=== PATIENT | female | born 1960 | race African-American/Black ===

== ENCOUNTER 2017-10-29 16:59 | Inpatient (IN) | payer BC, SELFPAY ==
--- NOTE | 2017-10-29 17:43 | RAD ---
PORTABLE CHEST: 10/29/17 HISTORY: Syncope. COMPARISON: 01/05/17. The lungs appear clear. No infiltrate. Heart and mediastinum unremarkable. IMPRESSION: Unremarkable chest. POS: [facility]
[2017-10-29 18:03] LABS: Hemoglobin 12.3 g/dL (12.0-16.0); Mean Corpuscular HGB CONC 31.9 g/dL (32.0-36.0); Mean Corpuscular Hemoglobin 23.9 pg (27.0-31.0); Mean Corpuscular Volume 74.8 fL (78.0-98.0); Mean Platelet Volume 8.5 fL (7.4-10.4); Platelet Count 217 thou/uL (130-400); RBC Distribution Width 13.1 % (11.5-14.5); Red Blood Cell (RBC) Count 5.15 mill/uL (4.20-5.40); White Blood Cell (WBC) Count 5.8 thou/uL (4.8-10.8)
--- NOTE | 2017-10-29 18:10 | CT ---
CT HEAD WITHOUT CONTRAST: 10/29/17 Multiple axial tomograms obtained through the head without IV enhancement. INDICATIONS: Syncope. Ventricles have normal size and position. No evidence of intracranial mass, hemorrhage, or infarct. IMPRESSION: No acute abnormality. POS: [facility]
[2017-10-29 18:18] LABS: ALT (SGPT) 17 U/L (8-55); AST (SGOT) 20 U/L (5-34); Albumin 4.3 g/dL (3.5-5.0); Alkaline Phosphatase 59 U/L (40-150); Anion Gap 14 mmol/L (10-20); BUN (Urea Nitrogen) 12 mg/dL (9.8-20.1); Bilirubin, Total 0.3 mg/dL (0.2-1.2); CK (CPK) 510 U/L (29-168); Calc. Creatinine Clearance 0 mL/min (70-130); Calcium 9.5 mg/dL (7.8-10.44); Carbon Dioxide 23 mmol/L (22-29); Chloride 106 mmol/L (98-107); Estimated GFR-MDRD 59; Globulin 3.4 g/dL (2.4-3.5); Glucose 112 mg/dL (70-105); Potassium 3.8 mmol/L (3.5-5.1); Protein, Total 7.7 g/dL (6.0-8.3); Sodium 139 mmol/L (136-145)
[2017-10-29 18:22] LABS: CKMB 6.2 ng/mL (0-6.6); Troponin I 0.022 ng/mL (< 0.028)
[2017-10-29] MEDS ORDERED: Acetaminophen 500 MG TAB ONE (18:22)
[2017-10-29 18:23] LABS: #Eosinphils 0.1 thou/uL (0.0-0.7); #Lymphocytes 1.3 thou/uL (1.20-3.40); #Monocytes 0.5 thou/uL (0.11-0.59); %Basophils 0.4 % (0.0-1.0); %Eosinophils 0.9 % (0.0-10.0); %Lymphocytes 21.9 % (21.0-51.0); %Monocytes 7.8 % (0.0-10.0); MDiff Complete? YES; Microcytosis SLIGHT = 6-15 cells (100X) (0-5/hpf)
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
[2017-10-29 19:37] LABS: Bilirubin Negative (Negative); Blood, Urine Trace (Negative); Clarity TURBID (Clear); Glucose, Urine (Dipstick) Negative (Negative); Leukocyte Small (Negative); Nitrite Positive (Negative); Protein, Urine (Dipstick) 100 mg/dL (Neg-Trace); Specific Gravity, Urine 1.009 (1.002-1.036); Urobilinogen 0.2 mg/dL (0.2-1.0); pH, Urine 8.5 (5.0-9.0)
[2017-10-29 19:40] LABS: Bacteria/HPF 3+ HPF (None Seen); Pathc Cast-AUWi Flag 1.59 (0-2.49)
[2017-10-29 19:52] LABS: Hyaline Casts/LPF NONE SEEN LPF (0-3 Hyaline); RBC/HPF 0-3 HPF (0-3); Renal Epithelial None Seen HPF (0-3); Transitional Epithelial NONE SEEN HPF (0-3)
[2017-10-29 21:10] VITALS: BMI 41.5
[2017-10-29 21:38] LABS: Troponin I 0.017 ng/mL (< 0.028)
[2017-10-29] MEDS: Acetaminophen 325 MG TAB PO PRN (22:06)
[2017-10-29] MEDS: Sodium Chloride 0.9% 1,000 ML IV SCH (22:06)
[2017-10-29] MEDS ORDERED: Propranolol HCl 20 MG TAB PO PRN (22:43)
--- NOTE | 2017-10-29 22:46 | ULT ---
CAROTID DOPPLER: 10/29/17 Ultrasound doppler study performed in the extracranial carotid arteries. INDICATION: Syncope. Ultrasound images show no significant echogenic plaque. Velocity recordings are within normal range. No evidence of significant stenosis. Vertebral bodies sh ow antegrade flow. IMPRESSION: 1. No significant echogenic plaque identified by ultrasound. 2. No evidence of significant stenosis identified in either internal carotid artery. POS: [facility]
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
[2017-10-29] MEDS ORDERED: Apixaban 5 MG TAB PO SCH (23:30)
[2017-10-30 00:14] LABS: Troponin I Less than 0.010 ng/mL (< 0.028)
[2017-10-30 05:37] LABS: Anion Gap 11 mmol/L (10-20); BUN (Urea Nitrogen) 10 mg/dL (9.8-20.1); Calc. Creatinine Clearance 131 mL/min (70-130); Calcium 8.8 mg/dL (7.8-10.44); Carbon Dioxide 26 mmol/L (22-29); Chloride 108 mmol/L (98-107); Estimated GFR-MDRD 83; Glucose 84 mg/dL (70-105); Potassium 3.7 mmol/L (3.5-5.1); Sodium 141 mmol/L (136-145)
--- NOTE | 2017-10-30 05:50 | PDOC.FM ---
- Subjective Subjective: Pt has had no events since admission. Reports occasional chest tightness during afib episodes at home and once in the ER. She has not had a stress test for at least 2 years. No cp or tightness this morning. ROS: no fevers no chills, no sob no cough, no palpitations no cp, no nausea no vomiting, no dysuria no hematuria - Objective MAR Reviewed: Yes Vital Signs & Weight: Vital Signs (12 hours) Temp Pulse Resp BP BP BP BP 10/30/17 04:30 97.7 F 59 L 16 122/66 10/29/17 23:50 55 L 14 113/63 115/69 113/59 L 10/29/17 21:14 97.8 F 60 16 130/61 10/29/17 20:52 97.8 F 60 16 Pulse Ox 10/30/17 04:30 98 10/29/17 23:50 98 10/29/17 21:14 100 10/29/17 20:52 Weight Weight 113.217 kg I&O: 10/28/17 10/29/17 10/30/17 06:59 06:59 06:59 Intake Total 1121 Balance 1121 Result Diagrams: 10/29/17 17:42 10/30/17 04:52 <Ney Torrez - Last Filed: 10/30/17 12:51> - Objective Vital Signs & Weight: Vital Signs (12 hours) Temp Pulse Resp BP Pulse Ox 10/30/17 12:25 98.0 F 58 L 16 118/57 L 99 10/30/17 07:50 98.0 F 58 L 16 123/59 L 100 Weight Weight 113.217 kg I&O: 10/29/17 10/30/17 10/31/17 06:59 06:59 06:59 Intake Total 1121 579 Balance 1121 579 Result Diagrams: 10/29/17 17:42 10/30/17 04:52 <Elsy Valle - Last Filed: 10/30/17 17:16> Phys Exam - Physical Examination Constitutional: NAD HEENT: moist MMs, sclera anicteric Respiratory: no wheezing, clear to auscultation bilateral Cardiovascular: RRR, no significant murmur Gastrointestinal: soft, non-tender Psychiatric: normal affect, A&O x 3 Skin: no rash, cap refill <2 seconds <Ney Torrez - Last Filed: 10/30/17 12:51> Dx/Plan (1) Syncope and collapse Code(s): R55 - SYNCOPE AND COLLAPSE Status: Acute (2) Atrial fibrillation Code(s): I48.91 - UNSPECIFIED ATRIAL FIBRILLATION Status: Acute (3) Chest tightness Code(s): R07.89 - OTHER CHEST PAIN Status: Acute (4) Acute kidney injury Code(s): N17.9 - ACUTE KIDNEY FAILURE, UNSPECIFIED Status: Acute (5) Bacteriuria with pyuria Code(s): N39.0 - URINARY TRACT INFECTION, SITE NOT SPECIFIED Status: Acute - Plan Plan: 57 yr old female with paroxysmal a fib and episode of syncope Syncope A-Likely 2/2 arrhythmia (A fib) verses vasovagal syncope given emotional stressor immediately proceeding event, possible dehydration. Although pyuria present, no evidence for infection at this time. Neurologically intact so unlikely to be cause. orthostatics negative, carotid US negative. P- ECHO - Stress test (resting portion today, finish tomorrow) Paroxysmal a fib -monitored on Profound -cont eleGroopt -cont home meds after stress test Pyuria A- Likely a chronic colonizer. no WBC elevation to suggest infection. P- will await urine culture hold abx for now since she has urostomy Chest Tightness A- Pt not currently experiencing symptoms. troponins negative x3, normal EKG and CXR, no stress test since 2016 at least. Pt describes tightness accompanying events of afib P- resume syncope workup (echo, stress test) JENNIFER A- resolved P- continue to monitor DVT PPX- eliquis heart healthy diet, NPO after midnight for stress portion of stress test tomorrow <Ney Torrez - Last Filed: 10/30/17 12:51> Attending Addendum - Attending Addendum Date/Time: 10/30/17 1829 I personally evaluated the patient and discussed the management with Dr. Torrez. I agree with the History, Examination, Assessment and Plan documented above with any addition or exceptions noted below. Pt with syncopal event and what felt like the start of her a.fib. Carotid doppler was ordered. CE negative. Will get stress test. <Elsy Valle - Last Filed: 10/30/17 17:16>
--- NOTE | 2017-10-30 06:18 | PDOC.EVN ---
Event Note - Event Note Event Note: Patient decided after moving to the floor that she would like to be full code. Her family is in agreement with this as well.
[2017-10-30] MEDS: Sodium Chloride 0.9% 1,000 ML IV SCH ×3 (07:58→23:39)
[2017-10-30] MEDS: Apixaban 5 MG TAB PO SCH ×2 (09:31→19:57)
[2017-10-30] MEDS: Acetaminophen 325 MG TAB PO PRN (12:58)
[2017-10-31 05:12] LABS: Hemoglobin 10.6 g/dL (12.0-16.0); Platelet Count 184 thou/uL (130-400)
--- NOTE | 2017-10-31 05:27 | PDOC.FM ---
- Subjective Subjective: Pt feeling well this morning. no cp or sob overnight or in morning. no complaints. ROS: no fever no chills, no sob no cough, no cp no palpitations, no nausea no vomiting, no rashes or swelling, no tenderness at urostomy - Objective MAR Reviewed: Yes Vital Signs & Weight: Vital Signs (12 hours) Temp Pulse Resp BP Pulse Ox 10/30/17 19:55 98.2 F 59 L 20 10/30/17 19:17 98.2 F 59 L 20 110/58 L 99 Weight Weight 113.217 kg I&O: 10/29/17 10/30/17 10/31/17 06:59 06:59 06:59 Intake Total 1121 2074 Balance 1121 2074 Result Diagrams: 10/31/17 04:20 10/31/17 04:19 <Ney Torrez - Last Filed: 10/31/17 08:15> - Objective Vital Signs & Weight: Vital Signs (12 hours) Temp Pulse Resp BP BP BP Pulse Ox 10/31/17 15:40 98.2 F 70 14 126/58 L 99 10/31/17 11:47 98.6 F 63 14 99 10/31/17 11:30 98.6 F 63 14 144/71 H 99 10/31/17 07:50 98.0 F 54 L 16 121/61 99 10/31/17 04:40 98 F 55 L 14 108/53 L 99 Weight Weight 113.217 kg I&O: 10/30/17 10/31/17 11/01/17 06:59 06:59 06:59 Intake Total 1121 6746 756 Balance 1121 2336 756 Result Diagrams: 10/31/17 04:20 10/31/17 04:19 <Elsy Valle - Last Filed: 10/31/17 16:18> Phys Exam - Physical Examination Constitutional: NAD HEENT: moist MMs, sclera anicteric Respiratory: no wheezing, clear to auscultation bilateral Cardiovascular: RRR, no significant murmur Gastrointestinal: soft, non-tender Psychiatric: normal affect Skin: no rash, normal turgor <Ney Torrez - Last Filed: 10/31/17 08:15> Dx/Plan (1) Syncope and collapse Code(s): R55 - SYNCOPE AND COLLAPSE Status: Acute (2) Atrial fibrillation Code(s): I48.91 - UNSPECIFIED ATRIAL FIBRILLATION Status: Acute (3) Chest tightness Code(s): R07.89 - OTHER CHEST PAIN Status: Acute (4) Acute kidney injury Code(s): N17.9 - ACUTE KIDNEY FAILURE, UNSPECIFIED Status: Acute (5) Bacteriuria with pyuria Code(s): N39.0 - URINARY TRACT INFECTION, SITE NOT SPECIFIED Status: Acute (6) Anemia Code(s): D64.9 - ANEMIA, UNSPECIFIED Status: Acute - Plan Plan: 57 yr old female with paroxysmal a fib and episode of syncope Syncope A-Likely 2/2 arrhythmia (A fib) verses vasovagal syncope given emotional stressor immediately proceeding event, possible dehydration. Although pyuria present, no evidence for infection at this time. Neurologically intact so unlikely to be cause. orthostatics negative, carotid US negative. Echo shows grade 2/3 HFpEF P- Stress test (resting portion today, finish tomorrow) HFpEF A- likely due to afib and obesity. pt not hypertensive but is currently on metoprolol at home for afib. P- stress test today - Continue home meds for afib after stess test today - will advise pt on weight loss Paroxysmal a fib -monitored on tele -cont ele[employer] Runner -cont home meds after stress test (metoprolol, flecainide) Pyuria A- Cultures show presumed proteus. Pt not showing signs of infection. P- will await culture species hold abx for now since she has urostomy Chest Tightness A- Pt not currently experiencing symptoms. troponins negative x3, normal EKG and CXR, no stress test since 2016 at least. Pt describes tightness accompanying events of afib. Echo shows grade 2/3 HFpEF P- stress test today Anemia A- H/H 10.6/32.9, pt denies fatigue/sob/mora P- will consider getting anemia workup for outpt management JENNIFER - Resolved DVT PPX- eliquis NPO until after stress test today <Ney Torrez - Last Filed: 10/31/17 08:15> Attending Addendum - Attending Addendum Date/Time: 10/31/17 2616 I personally evaluated the patient and discussed the management with Dr. Torrez. I agree with the History, Examination, Assessment and Plan documented above with any addition or exceptions noted below. The patient had second part of stress test today. Results pending. Echo shows newly diagnosed Grade 2/3 diastolic heart failure. Will consult cardiology. Pt has paroxysmal a.fib and her metoprolol is being held currently due to bradycardia and low blood pressures. <Elsy Valle - Last Filed: 10/31/17 16:18>
[2017-10-31] MEDS: Apixaban 5 MG TAB PO SCH ×2 (10:30→21:24)
[2017-10-31] MEDS: Sodium Chloride 0.9% 1,000 ML IV SCH (10:32)
--- NOTE | 2017-10-31 11:03 | NM ---
RADIONUCLIDE STRESS REST MYOCARDIAL PERFUSION SCAN WITH CT ATTENUATION CORRECTION AND SPECT IMAGING LEFT VENTRICULAR WALL MOTION EVALUATION AND EJECTION FRACTION: HISTORY: Chest pain. FINDINGS: Adenosine protocol was used. Heterogeneous uptake of radiotracer throughout the left ventricular myoc ardium. Breast attenuation anterior wall. No significant reversibility. QGS analysis of gated SPECT images shows no focal wall motion abnormalities. Left ventricular ejecti on fraction is calculated at 72%. IMPRESSION: Normal myocardial perfusion scan. Normal left ventricular ejection fraction. POS: [facility]
[2017-10-31] MEDS ORDERED: ADENOSINE 60 MG/20 ML VIAL ONE (11:07)
[2017-10-31] MEDS: Flecainide 50 MG TAB PO SCH (21:24)
--- NOTE | 2017-10-31 22:12 | CON ---
DATE OF CONSULT: 10/31/17 HISTORY OF PRESENT ILLNESS: The patient is a pleasant 57-year-old woman with a long history of atrial fibrillation who presented after she nearly lost consciousness. The patient has a long history of atrial fibrillation. States two years ago she underwent ablation by Dr. Frandy Menjivar. The patient has been treated subsequently with flecainide, apixaban and atenolol. She reports she has had episodes of palpitations which seem to respond when she takes her atenolol. She discontinued on her own her flecainide. The patient states she feels rapid palpitations at times and feels like she becomes lightheaded. On the day of admission, she had felt again her heart racing. She felt lightheaded and apparently nearly lost consciousness. The patient also reports that she developed substernal chest pain whenever she is in atrial fibrillation. She denies any present chest discomfort. PAST MEDICAL HISTORY: 1. Atrial fibrillation 2. Bladder carcinoma 3. Diabetes. PAST SURGICAL HISTORY: Urostomy, hip surgery, cholecystectomy. PAST MEDICAL HISTORY: There is a history of anxiety. SOCIAL HISTORY: Nonsmoker. ALLERGIES: None. MEDICATION ON ADMISSION: Metoprolol 50 XL daily, Eliquis 5 q. day. PHYSICAL EXAMINATION: GENERAL: This is an obese woman in no acute distress. VITAL SIGNS: Blood pressure 122/69. NECK: No jugular distention, no carotid bruits. LUNGS: Clear to auscultation. HEART: Regular rate and rhythm, normal S1, S2. ABDOMEN: Nondistended. EXTREMITIES: No edema. SKIN: Warm and dry. NEUROLOGIC: Nonfocal. EXTREMITIES: No edema. LABORATORY RESULTS: Revealed to have a white blood count 5.8. Hemoglobin 12.3, hematocrit 38.5. Her platelets are 217. Her sodium was 141, potassium 3.7, chloride 108, bicarbonate 26, BUN 10, creatinine 0.85. Her glucose is 84, troponin less than 0.01. Her EKG revealed her to have normal sinus rhythm, normal ECG. IMPRESSION: 1. Syncope. 2. History of paroxysmal atrial fibrillation. 3. Status post ablation for atrial fibrillation. 4. History of bladder carcinoma. 5. Anxiety. 6. Obesity. This patient presented with near syncope. She has these symptoms on frequent occasions when she is in atrial fibrillation. The patient self-discontinued her flecainide. I would recommend she stay on this medication chronically or undergo another ablation. Would also treat her with low dose beta-elizabteh. We will follow this patient with you through her hospitalization. NICK
--- NOTE | 2017-11-01 06:21 | PDOC.FM ---
- Subjective Subjective: 57 yo female seen this AM. No complaints. Patient doing well and slept well. Denies any SOB, chest pain, palpations, or fevers. Patient does not complain of UTI symptoms, but with past history of bladder cancer and positive culture, counseled on risk/benefit of treating. Patient would like to be treated at this time. - Objective Vital Signs & Weight: Vital Signs (12 hours) Temp Pulse Resp BP Pulse Ox 11/01/17 04:00 98.1 F 52 L 16 123/62 99 10/31/17 19:40 97.9 F 61 15 117/56 L 98 10/31/17 18:49 98.7 F 71 16 Weight Weight 113.217 kg I&O: 10/30/17 10/31/17 11/01/17 06:59 06:59 06:59 Intake Total 1121 3818 756 Balance 1121 3818 756 Result Diagrams: 10/31/17 04:20 10/31/17 04:19 <Arnold Swan - Last Filed: 11/01/17 07:28> - Objective Vital Signs & Weight: Vital Signs (12 hours) Temp Pulse Resp BP Pulse Ox 11/01/17 08:20 97.4 F L 53 L 16 121/65 98 11/01/17 08:00 97.4 F L 53 L 16 11/01/17 04:00 98.1 F 52 L 16 123/62 99 Weight Weight 113.217 kg I&O: 10/31/17 11/01/17 11/02/17 06:59 06:59 06:59 Intake Total 8818 756 Balance 3811 756 Result Diagrams: 10/31/17 04:20 10/31/17 04:19 <Elsy Valle - Last Filed: 11/01/17 10:04> Phys Exam - Physical Examination Constitutional: NAD HEENT: PERRLA, moist MMs Neck: no nodes Respiratory: no wheezing, clear to auscultation bilateral Cardiovascular: RRR, no significant murmur Gastrointestinal: soft, non-tender, no distention, positive bowel sounds Musculoskeletal: no edema, pulses present Neurological: non-focal, normal sensation, moves all 4 limbs Lymphatic: no nodes Psychiatric: normal affect, A&O x 3 Skin: no rash <Arnold Swan - Last Filed: 11/01/17 07:28> Dx/Plan (1) Syncope Code(s): R55 - SYNCOPE AND COLLAPSE Status: Acute (2) Atrial fibrillation Code(s): I48.91 - UNSPECIFIED ATRIAL FIBRILLATION Status: Acute (3) UTI (urinary tract infection) Status: Acute (4) Acute kidney injury Code(s): N17.9 - ACUTE KIDNEY FAILURE, UNSPECIFIED Status: Resolved (5) Anemia Code(s): D64.9 - ANEMIA, UNSPECIFIED Status: Acute (6) Chest tightness Code(s): R07.89 - OTHER CHEST PAIN Status: Acute (7) Syncope and collapse Code(s): R55 - SYNCOPE AND COLLAPSE Status: Acute - Plan Plan: Syncope - Neurologically intact so unlikely to be cause. - orthostatics negative - carotid US negative. - Echo shows grade 2/3 HFpEF - Stress test negative HFpEF - likely due to afib and obesity. pt not hypertensive but is currently on metoprolol at home for afib. - stress test negative - will advise pt on weight loss Paroxysmal a fib - monitored on tele - cont eleiquis - Bradycardia rates in 50-60s - Cardiology recommends Flecainide and Metoprolol Chest Tightness - Pt not currently experiencing symptoms. troponins negative x3, normal EKG and CXR, no stress test since 2016 at least. Pt describes tightness accompanying events of afib. - Echo shows grade 2/3 HFpEF - stress test today negative Anemia - H/H 10.6/32.9, pt denies fatigue/sob/mora - Hemodynamically stable JENNIFER - Resolved UTI - Cultures positive for Proteus - Will treat with Amoxicillin - Recommend outpatient follow up to ensure resolution. Disposition: Will determine outpatient management of A-fib prior to discharge. <Arnold Swan - Last Filed: 11/01/17 07:28> Attending Addendum - Attending Addendum Date/Time: 11/01/17 1003 I personally evaluated the patient and discussed the management with Dr. Swan. I agree with the History, Examination, Assessment and Plan documented above with any addition or exceptions noted below. The patient will be restarted on flecainide and metoprolol. Holding parameters for metoprolol will be given to the patient. Patient's stress test was negative. Echo shows diastolic dysfunction. Will likely d/c home with outpt cardiology follow-up. <Elsy Valle - Last Filed: 11/01/17 10:04>
[2017-11-01] MEDS ORDERED: AMOXicillin 250 MG CAP PO SCH (09:00)
[2017-11-01] MEDS: Apixaban 5 MG TAB PO SCH ×2 (10:25→20:24)
[2017-11-01] MEDS: Flecainide 50 MG TAB PO SCH ×2 (10:25→20:24)
[2017-11-01] MEDS: AMOXicillin 250 MG CAP PO SCH ×2 (11:31→20:24)
[2017-11-02 05:17] LABS: Hemoglobin 10.9 g/dL (12.0-16.0); Platelet Count 190 thou/uL (130-400)
--- NOTE | 2017-11-02 05:26 | PDOC.FM ---
- Subjective Subjective: Pt feeling even more improved this AM since restarting metoprolol and flecainide. Reports being ready to go home. ROS: chills no fevers, no sob no cough, no cp or palpitations, no nausea or vomiting, no tenderness along urostomy or hematuria - Objective MAR Reviewed: Yes Vital Signs & Weight: Vital Signs (12 hours) Temp Pulse Resp BP BP Pulse Ox 11/02/17 04:00 98.2 F 51 L 20 118/66 99 11/02/17 00:00 98.0 F 58 L 20 108/53 L 97 11/01/17 19:50 99.1 F 62 13 133/66 98 Weight Weight 113.217 kg I&O: 10/31/17 11/01/17 11/02/17 06:59 06:59 06:59 Intake Total 3818 756 Balance 3818 756 Result Diagrams: 11/02/17 04:24 11/02/17 04:24 <Ney Torrez - Last Filed: 11/02/17 07:23> - Objective Vital Signs & Weight: Vital Signs (12 hours) Temp Pulse Resp BP Pulse Ox 11/02/17 08:30 97.8 F 56 L 20 124/58 L 100 11/02/17 04:00 98.2 F 51 L 20 118/66 99 Weight Weight 113.217 kg I&O: 11/01/17 11/02/17 11/03/17 06:59 06:59 06:59 Intake Total 756 Balance 756 Result Diagrams: 11/02/17 04:24 11/02/17 04:24 <Elsy Valle - Last Filed: 11/02/17 12:46> Phys Exam - Physical Examination Constitutional: NAD HEENT: moist MMs, sclera anicteric Respiratory: no wheezing, clear to auscultation bilateral Cardiovascular: no significant murmur bradycardic Gastrointestinal: soft, non-tender Musculoskeletal: no edema, pulses present Skin: no rash, normal turgor <Ney Torrez - Last Filed: 11/02/17 07:23> Dx/Plan (1) Syncope and collapse Code(s): R55 - SYNCOPE AND COLLAPSE Status: Acute (2) Atrial fibrillation Code(s): I48.91 - UNSPECIFIED ATRIAL FIBRILLATION Status: Acute (3) Chest tightness Code(s): R07.89 - OTHER CHEST PAIN Status: Acute (4) Acute kidney injury Code(s): N17.9 - ACUTE KIDNEY FAILURE, UNSPECIFIED Status: Resolved (5) Bacteriuria with pyuria Code(s): N39.0 - URINARY TRACT INFECTION, SITE NOT SPECIFIED Status: Acute (6) Anemia Code(s): D64.9 - ANEMIA, UNSPECIFIED Status: Acute - Plan Plan: 57 yr old female with paroxysmal a fib and episode of syncope and newly diagnosed HFpEF Syncope A-Likely 2/2 arrhythmia (A fib) verses vasovagal syncope given emotional stressor immediately proceeding event, possible dehydration. Neurologically intact so unlikely to be cause. orthostatics negative, carotid US negative. Echo shows grade 2/3 HFpEF, stress test negative. P- will discharge home today HFpEF A- likely due to afib and obesity. pt not hypertensive but is currently on metoprolol at home for afib. P- Restarted low dose metoprolol and flecainide per cardiology recs - will advise pt on weight loss Paroxysmal a fib -monitored on tele -cont eleiquis -Restarted low dose metoprolol and flecainide per cardiology recs Pyuria A- Cultures show proteus. Pt not showing signs of infection. P- Amoxicillin started (11/01) Chest Tightness A- Pt not currently experiencing symptoms. troponins negative x3, normal EKG and CXR. Pt describes tightness accompanying events of afib. Echo shows grade 2/ 3 HFpEF, stress test negative P- safe to discharge home on home cardiology recommended meds, will recommend Cards follow up appointment Anemia A- H/H 10.9/35.6, pt denies fatigue/sob/mora P- will plan outpt management JENNIFER - Resolved DVT PPX- eliquis NPO until after stress test today <Ney Torrez - Last Filed: 11/02/17 07:23> Attending Addendum - Attending Addendum Date/Time: 11/02/17 8870 I personally evaluated the patient and discussed the management with Dr. Torrez. I agree with the History, Examination, Assessment and Plan documented above with any addition or exceptions noted below. The patient is doing well. Will d/c home on flecainide and metoprolol. OK for pt's heart rate to be in 50's per cardiology. When pt gets insurance, she would benefit from ablation. Will f/u with myself. <Elsy Valle - Last Filed: 11/02/17 12:46>
[2017-11-02] MEDS: Flecainide 50 MG TAB PO SCH (10:10)
[2017-11-02] MEDS: Apixaban 5 MG TAB PO SCH (10:10)
[2017-11-02] MEDS: AMOXicillin 250 MG CAP PO SCH (10:11)
[2017-11-02 13:50] VITALS: BP 124/61; TEMP 97.9
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
--- NOTE | 2017-11-04 15:44 | PQF ---
MI VEGA KATHERINE MD *r [id number] [facility]-239 [id number] CLINICAL DOCUMENTATION CLARIFICATION FORM: POST DISCHARGE Addendum to original discharge summary date: ____ Late entry note date: __ Please exercise your independent, professional judgment in responding to the clarification form. Clinical indicators are provided on the bottom of this form for your review Please check appropriate box(s): HEART FAILURE: CONGESTIVE DIATOLIC HEART FAILURE/ HFpEF ACUITY [ ] Acute [ ] Acute on Chronic [ X ] Chronic [ ] Unable to determine In addition, please specify: Present on Admission (POA): [ X ] Yes [ ] No [ ] Unable to determine For continuity of documentation, please document condition throughout progress notes and discharge summary. Thank You. CLINICAL INDICATORS - SIGNS / SYMPTOMS / LABS Ejection Fraction =60-65 % Dyspnea, Hypoxia Peripheral edema RISKS: ATRILA FIBRILLATION TREATMENTS: GOYO Cardiac monitoring / telemetry (This form is maintained as a part of the permanent medical record) 2014 [employer]. All Rights Reserved [email or web address] [phone] MTDD
--- NOTE | 2017-11-04 15:49 | PQF ---
MI VEGA KATHERINE MD *r [id number] [facility]-239 [id number] CLINICAL DOCUMENTATION CLARIFICATION FORM: POST DISCHARGE Addendum to original discharge summary date: ____ Late entry note date: __ Please exercise your independent, professional judgment in responding to the clarification form. Clinical indicators are provided on the bottom of this form for your review Please check appropriate box(s): [ ] Acute blood loss anemia [ ] Anemia: [ ] Aplastic [ ] Nutritional [ ] Drug induced (specify) ___ [ ] Hemolytic [ ] Hereditary [ ] Acquired [ ] Autoimmune [ ] Non-autoimmune [ ] Enzyme disorder [ x ] Chronic Anemia: [ ] Blood loss [ ] Hemolytic [ ] Simple [ ] Due to Vitamin B12 Deficiency [ ] Other [ x ] Anemia of Chronic Disease (please specify) [ ] Anemia due to Neoplasm: [ ] Primary [ ] Secondary [ ] Anemia due to (please choose): [ ] Due to Chemotherapy [ ] Due to Radiotherapy [ ] Due to Immunotherapy [ ] Other diagnosis [ ] Unable to determine In addition, please specify: Present on Admission (POA): [ x ] Yes [ ] No [ ] Unable to determine For continuity of documentation, please document condition throughout progress notes and discharge summary. Thank You. CLINICAL INDICATORS - SIGNS / SYMPTOMS / LABS HGB 7/6 = 10.6 HGB 7/8 = 10.9 Anemia Low hemoglobin and/or hematocrit RISK FACTORS Hx bladder ca TREATMENTS: Monitor (This form is maintained as a part of the permanent medical record) 2014 [employer]. All Rights Reserved [email or web address] [phone] NICK
== END 2017-11-02 14:32 | disposition home or self-care (01) | DRG 309 ==
LOC: ERS 16:59 → 2SW 20:36 → OBSVTOIN 20:36 → 2NO 10-31 16:38
PROVIDERS: ADMIT Family Medicine; ATTEND Family Medicine
DX: I48.0 Paroxysmal atrial fibrillation (principal); N17.9 Acute kidney failure, unspecified; N39.0 Urinary tract infection, site not specified; Z68.41 Body mass index [BMI] 40.0-44.9, adult; I50.30 Unspecified diastolic (congestive) heart failure; I50.32 Chronic diastolic (congestive) heart failure; D63.8 Anemia in other chronic diseases classified elsewhere; B96.4 Proteus (mirabilis) (morganii) as the cause of diseases classified elsewhere; Z66 Do not resuscitate; Z96.0 Presence of urogenital implants; F41.9 Anxiety disorder, unspecified; E66.9 Obesity, unspecified; Z85.51 Personal history of malignant neoplasm of bladder; Z92.21 Personal history of antineoplastic chemotherapy; Z90.49 Acquired absence of other specified parts of digestive tract; Z79.899 Other long term (current) drug therapy; Z79.01 Long term (current) use of anticoagulants; Z86.39 Personal history of other endocrine, nutritional and metabolic disease
CPT/HCPCS: 36415; 70450; 71045; 78452; 80048; 80053; 80061; 81003; 81015; 82553; 82565; 83735; 84443; 84484; 85014; 85018; 85025; 85049; 87077; 87086; 87186; 93005; 93010; 93017; 93306; 93880; 96360; A9500; J0153

== ENCOUNTER 2018-05-29 07:06 | Outpatient (CLI) | payer OTHER ==
--- NOTE | 2018-05-29 09:20 | ULT ---
THYROID ULTRASOUND: 05/29/2018 HISTORY: Thyroid goiter and abnormal laboratory values. FINDINGS: The right lobe of the thyroid gland measures 4.3 cm x 1.7 cm x 1.9 cm, with the left lobe measuring 3 .7 cm x 1.8 cm x 1.4 cm. The thyroid isthmus measures 0.2 cm in AP dimensions. There are multiple small, heterogeneous and hypoechoic nodules seen, scattered within the right lobe of the thyroid gland, with three smaller heterogeneous nodules involving the superior pole, mid porti on, right lobe of thyroid gland, all of which measure approximately 0.5 cm in greatest dimensions. T here is a heterogeneous larger nodule seen within the mid portion, right lobe of the thyroid gland, w hich measures 1.8 cm in greatest dimensions, with a 1.7 cm heterogeneous nodule in the inferior pole right lobe of the thyroid gland, which does demonstrate linear echogenic areas with posterior shadowi ng, compatible with calcification at the periphery of the nodule. There are three nodules within the superior pole, mid portion, left lobe of the thyroid gland, with t he largest hypoechoic nodule seen within the mid portion, left lobe of the thyroid gland, measuring 1 .4 cm. The additional smaller hypoechoic nodules measure 0.3 cm in maximal dimensions. IMPRESSION: 1. Multinodular thyroid gland. 2. TI-RADS level IV-Moderately suspicious nodules in bilateral lobes of the thyroid gland. RECOMMENDATIONS: Fine needle aspiration of greater than or equal to 1.5 cm nodules, with follow-up evaluation of great er than or equal to 1 cm nodules. POS: RIA
== END 2018-05-29 07:07 | disposition home or self-care (01) ==
LOC: SCSULT 07:06
PROVIDERS: ATTEND Internal Medicine
DX: E04.2 Nontoxic multinodular goiter (principal); E07.9 Disorder of thyroid, unspecified
CPT/HCPCS: 76536

== ENCOUNTER 2018-07-03 11:00 | Day surgery (SDC) | payer OTHER ==
[2018-07-02 13:51] VITALS: BMI 40.3
--- NOTE | 2018-07-02 23:31 | HP ---
HISTORY OF PRESENT ILLNESS: This is a 58-year-old black female referred to me by Dr. Valle for abdominal pain, intermittent diarrhea, nausea. She has had symptoms off and on for a while. She has abdominal pain over the epigastric area. The pain is localized. She also has some lower abdomen cramping off and on. Diarrhea is intermittent. There is no history of rectal bleeding, fever, or weight loss. The patient is undergoing EGD and colonoscopy because of the above reasons. ALLERGIES: NONE. MEDICAL ILLNESSES: 1. History of bladder cancer, status post removal of urinary bladder, status post ileal conduit for urinary diversion. 2. Atrial fibrillation, failed ablation. 3. Obesity. 4. Chronic acid reflux. 5. Cholecystectomy. 6. Hysterectomy. 7. Right hip replacement. PHYSICAL EXAMINATION: VITAL SIGNS: Pulse is 70, blood pressure 130/70. HEENT: Conjunctivae clear. CARDIOVASCULAR: First and second heart sounds heard. LUNGS: Clear to auscultation. ABDOMEN: Soft. No organomegaly. Abdomen is minimally tender over the epigastric area. There is no rebound or guarding. ADMITTING DIAGNOSES: Abdominal pain, nausea, and intermittent diarrhea. PLAN: EGD and colonoscopy. Job ID: [id number]
[2018-07-03] MEDS ORDERED: PROPOFOL 200 MG/20 ML VIAL ONE (14:23)
[2018-07-03] MEDS ORDERED: Lidocaine 1% PF 5 ML VIAL ONE (14:23)
--- NOTE | 2018-07-03 17:24 | OP ---
DATE OF PROCEDURE: 07/03/2018 OPERATIVE PROCEDURE: Esophagogastroduodenoscopy with biopsy. PREOPERATIVE DIAGNOSES: Abdominal pain and nausea. POSTOPERATIVE DIAGNOSES: 1. Small hiatal hernia. 2. Antral gastritis. 3. Normal duodenum. DESCRIPTION OF PROCEDURE: The patient was placed on her left lateral position and was given sedation by Anesthesia Department. A Pentax video gastroscope under direct vision passed down the oropharynx to the GE junction into the stomach and subsequently into the descending duodenum. The esophageal mucosa appeared normal. In the GE junction, no pathology seen. Does have esophageal rings nonobstructing. A small hiatus hernia. The fundus and cardia, gastric body, no pathology seen. The gastric antrum shows patchy areas of mucosal edema and erythema. Biopsy obtained from the area. The duodenal bulb, descending duodenum, no pathology seen. The stomach decompressed and the scope removed. DISCHARGE PLANS: A 58-year-old female referred to me by Dr. Elsy Valle for a colonoscopy for colon cancer screening. The patient also had abdominal pain and nausea off and on. The patient underwent EGD and was found to have antral gastritis and small hiatal hernia. The colonoscopy was basically negative. DISCHARGE RECOMMENDATIONS: 1. The patient was advised to call me if she develops abdominal pain, hematochezia. 2. Await gastric biopsy and decide further treatment. Job ID: [id number]
--- NOTE | 2018-07-03 17:34 | OP ---
DATE OF PROCEDURE: 07/03/2018 OPERATIVE PROCEDURE: Colonoscopy. PREOPERATIVE DIAGNOSIS: A 58-year-old black female undergoing colonoscopy for colon cancer screening. POSTOPERATIVE DIAGNOSES: 1. Hemorrhoids. 2. Redundant, tortuous colon. Otherwise, exam is normal. DESCRIPTION OF PROCEDURE: The patient was placed on her left lateral position and was given sedation by Anesthesia Department. A rectal exam was done before the scope was advanced into the rectum. No lesions felt on rectal exam. A Pentax video colonoscope was introduced into the rectum and advanced all the way to cecum. The prep was good. The mucosa appears to be normal throughout the colon with normal vascular pattern. The appendiceal orifice, ileocecal wall, cecum, no pathology seen. Withdrawal of scope in the cecum, ascending colon, hepatic flexure, transverse colon, no pathology seen. The splenic flexure, descending colon, sigmoid colon, no pathology seen. Retroflexion of scope in the rectum showed hemorrhoids. Job ID: [id number]
== END 2018-07-03 14:10 | disposition home or self-care (01) ==
LOC: SDC 11:00
PROVIDERS: ATTEND Internal Medicine Gastroenterology
PROC: 0DJD8ZZ Inspection of Lower Intestinal Tract, Via Natural or Artificial Opening Endoscopic (ICD-10-PCS; principal; 2018-07-03)
PROC: 0DB68ZX Excision of Stomach, Via Natural or Artificial Opening Endoscopic, Diagnostic (ICD-10-PCS; principal; 2018-07-03)
DX: Z12.11 Encounter for screening for malignant neoplasm of colon (principal); K29.50 Unspecified chronic gastritis without bleeding; K64.9 Unspecified hemorrhoids; K63.89 Other specified diseases of intestine; K22.2 Esophageal obstruction; K44.9 Diaphragmatic hernia without obstruction or gangrene; I48.91 Unspecified atrial fibrillation; E66.9 Obesity, unspecified; Z68.41 Body mass index [BMI] 40.0-44.9, adult; K21.9 Gastro-esophageal reflux disease without esophagitis; Z85.51 Personal history of malignant neoplasm of bladder; Z90.49 Acquired absence of other specified parts of digestive tract; Z96.641 Presence of right artificial hip joint; Z79.01 Long term (current) use of anticoagulants; Z79.899 Other long term (current) drug therapy
CPT/HCPCS: 88305; 88312; J2001; J2704

== ENCOUNTER 2018-08-24 12:26 | Day surgery (SDC) | payer OTHER ==
[2018-08-21 14:38] VITALS: BMI 41.1
[2018-08-24 13:25] VITALS: BP 119/65; TEMP 98.2
--- NOTE | 2018-08-24 13:52 | ULT ---
US Thyroid Needle Bx History: [Thyroid nodule. Goiter.] Comparison: Thyroid ultrasound May 29, 2018 Findings: Patient was brought to the ultrasound suite. Informed consent was obtained. Timeout perform ed. The patient's right neck was prepped and draped in normal sterile fashion. A total of (4) 25-gauge fi ne-needle aspirations were obtained of the right lobe of thyroid nodule. Impression: Technically successful ultrasound-guided right thyroid nodule biopsy.
== END 2018-08-24 13:40 | disposition home or self-care (01) ==
LOC: ULT 12:26
PROVIDERS: ATTEND Otolaryngology Plastic Surgery within the Head & Neck
PROC: 0GBH3ZX Excision of Right Thyroid Gland Lobe, Percutaneous Approach, Diagnostic (ICD-10-PCS; principal; 2018-08-24)
DX: E04.2 Nontoxic multinodular goiter (principal); I48.91 Unspecified atrial fibrillation; Z79.01 Long term (current) use of anticoagulants; Z79.899 Other long term (current) drug therapy
CPT/HCPCS: 60100; 76942; 88173

== ENCOUNTER 2021-04-02 07:24 | Outpatient (CLI) | payer OTHER ==
[2021-04-02 09:22] LABS: Mean Corpuscular HGB CONC 29.6 g/dL (32.0-36.0); Mean Corpuscular Hemoglobin 23.1 pg (27.0-33.0); Mean Corpuscular Volume 77.9 fl (81.6-98.3); Mean Platelet Volume 12.1 fl (7.4-10.4); Platelet Count 231 10x3/uL (150-450); Red Blood Cell (RBC) Count 4.76 10x6/uL (3.90-5.03); White Blood Cell (WBC) Count 5.9 10x3/uL (3.5-10.5)
[2021-04-02 09:37] LABS: Anion Gap 13 mmol/L (10-20); BUN (Urea Nitrogen) 11 mg/dL (9.8-20.1); Calc. Creatinine Clearance 0 mL/min (70-130); Calcium 9.1 mg/dL (7.8-10.44); Carbon Dioxide 26 mmol/L (23-31); Chloride 104 mmol/L (98-107); Glucose 123 mg/dL (80-115); Potassium 4.1 mmol/L (3.5-5.1); Sodium 139 mmol/L (136-145)
[2021-04-02 09:41] LABS: Prothrombin Time 10.9 sec (9.5-12.1)
[2021-04-03 10:59] LABS: SARS-CoV-2 PCR by NAA Not Detected (NotDetected)
== END 2021-04-02 07:25 | disposition home or self-care (01) ==
LOC: LABBT 07:24
PROVIDERS: ATTEND Internal Medicine Cardiovascular Disease
DX: Z01.812 Encounter for preprocedural laboratory examination (principal); I48.0 Paroxysmal atrial fibrillation; Z20.822 Contact with and (suspected) exposure to COVID-19
CPT/HCPCS: 80048; 85027; 85610; U0003; U0005

== ENCOUNTER 2021-04-05 06:20 | Day surgery (SDC) | payer OTHER ==
[2021-04-03 16:07] VITALS: BMI 39.9
[2021-04-05] MEDS ORDERED: Heparin 10,000 UNITS/ 10 ML VIAL ONE ×2 (06:38→09:30)
[2021-04-05] MEDS ORDERED: Heparin 25,000 units/D5W 500 ML ONE (06:38)
[2021-04-05] MEDS ORDERED: Fentanyl 100 MCG/2 ML VIAL ONE ×2 (06:51→10:43)
[2021-04-05] MEDS ORDERED: SUGAMMADEX SODIUM 200 MG/2 ML VIAL ONE (06:51)
[2021-04-05] MEDS ORDERED: Midazolam HCl 2 mg/2 ml Vial ONE (06:51)
[2021-04-05] MEDS ORDERED: Ondansetron PF 4 MG/2 ML Vial ONE ×2 (07:42→11:11)
[2021-04-05] MEDS ORDERED: Lidocaine 1% PF 5 ML VIAL ONE (07:42)
[2021-04-05] MEDS ORDERED: Rocuronium Bromide 10 MG/ML (10ML VIAL) ONE (07:42)
[2021-04-05] MEDS ORDERED: PROPOFOL 200 MG/20 ML VIAL ONE (07:42)
[2021-04-05] MEDS ORDERED: Protamine Sulfate 50 MG/5 ML VIAL ONE (10:00)
[2021-04-05] MEDS ORDERED: Promethazine HCl 25 MG/ML VIAL ONE (12:33)
== END 2021-04-05 15:06 | disposition home or self-care (01) ==
LOC: CCL 06:20
PROVIDERS: ATTEND Internal Medicine Cardiovascular Disease
PROC: 02583ZZ Destruction of Conduction Mechanism, Percutaneous Approach (ICD-10-PCS; principal; 2021-04-05)
PROC: 4A023FZ Measurement of Cardiac Rhythm, Percutaneous Approach (ICD-10-PCS; principal; 2021-04-05)
PROC: 4A0234Z Measurement of Cardiac Electrical Activity, Percutaneous Approach (ICD-10-PCS; principal; 2021-04-05)
PROC: 02K83ZZ Map Conduction Mechanism, Percutaneous Approach (ICD-10-PCS; principal; 2021-04-05)
DX: I48.0 Paroxysmal atrial fibrillation (principal); Z79.01 Long term (current) use of anticoagulants; Z79.899 Other long term (current) drug therapy
CPT/HCPCS: 85347; 93005; 93312; 93613; 93656; 93657; 93662; C1732; C1759; C1776; C1894; C2630; J1644; J2250; J2405; J2550; J2704; J2720; J3010

== ENCOUNTER 2021-12-17 12:35 | Outpatient (CLI) | payer OTHER | END 2021-12-17 12:36 | disposition home or self-care (01) | LOC: ULT 12:35 | PROVIDERS: ATTEND Internal Medicine Cardiovascular Disease | DX: I48.0 Paroxysmal atrial fibrillation (principal); R06.00 Dyspnea, unspecified; I51.7 Cardiomegaly | CPT/HCPCS: 93306 ==

== ENCOUNTER 2022-07-12 09:50 | Outpatient (CLI) | payer OTHER | END 2022-07-12 09:51 | disposition home or self-care (01) | LOC: NM 09:50 | PROVIDERS: ATTEND Internal Medicine Cardiovascular Disease | DX: I48.0 Paroxysmal atrial fibrillation (principal); I10 Essential (primary) hypertension; R07.89 Other chest pain; I20.9 Angina pectoris, unspecified | CPT/HCPCS: 78452; 93017; A9500; J0153 ==

== ENCOUNTER 2024-05-20 10:08 | Emergency (ER) | payer OTHER ==
[2024-05-20] MEDS ORDERED: Ketorolac Tromethamine 30 MG (1 mL) VIAL ONE (11:05)
[2024-05-20] MEDS ORDERED: diphenhydrAMINE 25 MG CAP ONE (11:05)
== END 2024-05-20 11:16 | disposition home or self-care (01) ==
LOC: ERS 10:08
DX: J01.00 Acute maxillary sinusitis, unspecified (principal); E11.9 Type 2 diabetes mellitus without complications
CPT/HCPCS: 96372; 99283; J1885